=== PATIENT | female | born 1990 | race Caucasian/White ===

== ENCOUNTER 2022-05-23 10:58 | Emergency (ER) | payer MEDICAID ==
[~2022-05-23] VITALS: Ht 175.3 cm; Wt 85.5 kg
[2022-05-23] MEDS ORDERED: MORPHINE SULFATE 4 MG/ML SYR/VIAL IV ONE (11:15)
[2022-05-23] MEDS ORDERED: ONDANSETRON HCL 4 MG/2 ML VIAL IV ONE (11:15)
[2022-05-23] MEDS ORDERED: HYDR-4902 PO (11:58)
[2022-05-23 13:00] VITALS: BP 132/83
== END 2022-05-23 13:50 | disposition home or self-care (01) ==
LOC: ER 10:58 → EDUNIT# 10:58 → EDBD 10:58 → ER 13:43
DX: S52.501A Unspecified fracture of the lower end of right radius, initial encounter for closed fracture (principal); S52.601A Unspecified fracture of lower end of right ulna, initial encounter for closed fracture; F12.10 Cannabis abuse, uncomplicated; Z98.51 Tubal ligation status; W20.8XXA Other cause of strike by thrown, projected or falling object, initial encounter; Y93.89 Activity, other specified; Y92.89 Other specified places as the place of occurrence of the external cause; Y99.8 Other external cause status
CPT/HCPCS: 29125; 73110; 96374; 96375; 99284; J2270; J2405